=== PATIENT | female | born 1940 | race Caucasian/White ===

== ENCOUNTER 2016-12-22 11:07 | Outpatient (CLI) ==
[2016-12-22 11:29] VITALS: BP 110/80; TEMP 98.8
[2016-12-22] MEDS ORDERED: LIDOCAINE 1 % AMP 5 ML (SUTURES) IM STA (11:30)
[2016-12-22] MEDS ORDERED: ROCEPHIN IM STA (11:30)
== END 2016-12-22 11:08 | disposition home or self-care (01) ==
LOC: OUTPT 11:07
PROVIDERS: ATTEND Family Medicine
DX: N39.0 Urinary tract infection, site not specified (principal)
CPT/HCPCS: 96372

== ENCOUNTER 2016-12-23 08:30 | Outpatient (CLI) | payer OTHER ==
[2016-12-23 08:41] VITALS: BP 115/70; TEMP 98.3
[2016-12-23] MEDS ORDERED: ROCEPHIN IM STA (08:41)
[2016-12-23] MEDS ORDERED: LIDOCAINE 1 % AMP 5 ML (SUTURES) IM STA (08:41)
== END 2016-12-23 08:31 | disposition home or self-care (01) ==
LOC: OUTPT 08:30 → OPMED 08:31
PROVIDERS: ATTEND Family Medicine
DX: N39.0 Urinary tract infection, site not specified (principal)
CPT/HCPCS: 96372

== ENCOUNTER 2016-12-24 08:35 | Outpatient (CLI) | payer OTHER ==
[2016-12-24 08:46] VITALS: BP 132/75; TEMP 98.2
[2016-12-24] MEDS ORDERED: LIDOCAINE 1 % AMP 5 ML (SUTURES) IM STA (08:46)
[2016-12-24] MEDS ORDERED: ROCEPHIN IM STA (08:46)
== END 2016-12-24 08:36 | disposition home or self-care (01) ==
LOC: OUTPT 08:35
PROVIDERS: ATTEND Family Medicine
DX: N39.0 Urinary tract infection, site not specified (principal)
CPT/HCPCS: 96372

== ENCOUNTER 2016-12-25 08:30 | Outpatient (CLI) | payer OTHER ==
[2016-12-25] MEDS ORDERED: LIDOCAINE 1 % AMP 5 ML (SUTURES) IM STA (08:48)
[2016-12-25] MEDS ORDERED: ROCEPHIN IM STA (08:48)
[2016-12-25 08:52] VITALS: BP 138/70; TEMP 97.1
== END 2016-12-25 08:31 | disposition home or self-care (01) ==
LOC: OUTPT 08:30
PROVIDERS: ATTEND Family Medicine
DX: N39.0 Urinary tract infection, site not specified (principal)
CPT/HCPCS: 96372

== ENCOUNTER 2016-12-26 08:49 | Outpatient (CLI) | payer OTHER ==
[2016-12-26] MEDS ORDERED: ROCEPHIN ONE (09:23)
[2016-12-26] MEDS ORDERED: LIDOCAINE 1 % AMP 5 ML (SUTURES) ONE (09:23)
[2016-12-26] MEDS ORDERED: ROCEPHIN IM STA (09:26)
[2016-12-26] MEDS ORDERED: LIDOCAINE 1 % AMP 5 ML (SUTURES) IM STA (09:26)
[2016-12-26 09:28] VITALS: BP 119/76; TEMP 97.4
== END 2016-12-26 08:50 | disposition home or self-care (01) ==
LOC: LAB 08:49 → OPMED 08:50
PROVIDERS: ATTEND Family Medicine
DX: N39.0 Urinary tract infection, site not specified (principal)
CPT/HCPCS: 96372

== ENCOUNTER 2016-12-27 08:45 | Outpatient (CLI) ==
[2016-12-27 08:54] VITALS: BP 144/79; TEMP 98.2
[2016-12-27] MEDS ORDERED: ROCEPHIN IM STA (08:54)
[2016-12-27] MEDS ORDERED: LIDOCAINE 1 % AMP 5 ML (SUTURES) IM STA (08:54)
== END 2016-12-27 08:46 | disposition home or self-care (01) ==
LOC: OUTPT 08:45
PROVIDERS: ATTEND Family Medicine
DX: N39.0 Urinary tract infection, site not specified (principal)
CPT/HCPCS: 96372

== ENCOUNTER 2018-03-28 17:42 | Inpatient (IN) | payer OTHER ==
[2018-03-28] MEDS ORDERED: DICLOFENAC SODIUM 4 GM TP SCH (21:30)
[2018-03-28] MEDS ORDERED: AZULFIDINE ONE (21:45)
[2018-03-28] MEDS ORDERED: SULFASALAZINE 500 MG PO SCH (21:45)
[2018-03-28] MEDS ORDERED: [UNRECOGNIZED DRUG - OTHER] TP SCH (21:45)
[2018-03-28] MEDS ORDERED: NEURONTIN ONE (21:46)
[2018-03-28] MEDS: FOLIC ACID PO SCH (21:49)
[2018-03-28] MEDS: PAMELOR PO SCH (21:53)
[2018-03-28] MEDS: FAMVIR PO SCH (21:54)
[2018-03-28] MEDS ORDERED: HYDROXYCHLOROQUINE SULFATE 200 MG PO SCH (22:00)
[2018-03-28] MEDS ORDERED: NON-FORMULARY MEDICATION (Gabapentin [Neurontin] 600 MG) PO SCH (22:00)
[2018-03-28 22:39] VITALS: BMI 21.4
[2018-03-29] MEDS: FERROUS SULFATE PO SCH ×2 (08:17→17:20)
[2018-03-29] MEDS: FAMVIR PO SCH (08:17)
[2018-03-29] MEDS: FOLIC ACID PO SCH (08:17)
[2018-03-29] MEDS: AZULFIDINE PO SCH (08:17)
[2018-03-29] MEDS: VITAMIN D PO SCH (08:17)
[2018-03-29] MEDS: PLAQUENIL PO SCH (08:17)
[2018-03-29] MEDS: [UNRECOGNIZED DRUG - OTHER] TP SCH ×3 (08:18→17:21)
[2018-03-29] MEDS: NEURONTIN PO SCH ×3 (08:18→17:20)
[2018-03-29] MEDS: NON-FORMULARY MEDICATION (Cyanocobalamin (Vitamin B-12) [Vitamin B-12] 1,000 MCG) PO SCH (08:21)
[2018-03-29] MEDS: FLORASTOR PO SCH (08:21)
[2018-03-29] MEDS ORDERED: DICLOFENAC SODIUM 4 GM TP SCH (09:00)
[2018-03-29] MEDS ORDERED: NON-FORMULARY MEDICATION (Tamoxifen Citrate [Tamoxifen Citrate] 20 MG) PO SCH (09:00)
[2018-03-29] MEDS ORDERED: BULGARICUS PO SCH (09:00)
[2018-03-29] MEDS ORDERED: NON-FORMULARY MEDICATION (Potassium Chloride [Potassium Chloride] 10 MEQ) PO SCH (09:00)
[2018-03-29] MEDS ORDERED: ACIDOPHILUS PO SCH (09:00)
[2018-03-29] MEDS ORDERED: MICRO-K CAP PO SCH (09:00)
[2018-03-29] MEDS ORDERED: MICRO-K CAP PO STA (09:46)
--- NOTE | 2018-03-29 14:53 | RS.OTINEVL ---
Subjective - Patient information Date of Evaluation: 03/29/18 Date of Arrival on Unit: 03/28/18 Admitted From:: Facility Transfer (transferred from [facility]) Usual Living Arrangement: With Spouse Living Arrangement Comments: pt lives alone, spouse last tuesday. Home Environment: House, Stairs (few) Medical History: Arthritis (OA and RA), Cancer Medical History Comments:: Right hip nailing, Left SAUNDRA, Breast CA, B TKA, hysterectomy. LATEX ALLERGY?: No Surgical History: Knee Replacement, Hip Replacement, Hysterectomy Surgical History Comments:: L wrist sx, kyhpoplasty C1, C2, T9, Medications: see chart Subjective Information/ Patient Comments:: "You busted my bubble." - Level of function Prior to this admission, the patient could do the following:: Independent Selfcare, Independent ADL's, Independent Ambulation Abilities prior to this admission: Pt was the caregiver for her . Pt was walking independently, driving, independent with all ADLS. Current Equipment Used at Home: none will need rwx upon dc Pain Assessment - Pain Pain Score: 0 Pain Location Body Site: Hip Pain Aggravating Factors: ADL's, Changing Position, Standing Pain Alleviating Factors: Medication, Standing Interventions - Objective Patient Orientation: Person, Place Current Interventions: IV's Observation: Pt is having a difficult time keeping weight off of her R LE. Pt is weak in her BUE. Interventions - ROM Right Upper Extremity AROM: WFL's Left Upper Extremity AROM: WFL's - Strength Right Upper Extremity Strength: Mild Weakness Left Upper Extremity Strength: Mild Weakness - Sensation Right Upper Extremity Sensation: Intact/Normal Left Upper Extremity Sensation: Intact/Normal Balance - Sitting Balance Static Sitting Balance: Fair Dynamic Sitting Balance: Fair - Standing Balance Static Standing Balance: Poor Dynamic Standing Balance: Poor - Comments Balance Assessment Comments: Poor ADL Skills - Self Feeding Self Feeding: Independent - Grooming Grooming: Mod Assist - Dressing Dressing UE: Min Assist, Mod Assist Dressing LE: Max Assist - Toilet Management Toileting Management: Max Assist, 2 person assist - Comments Comments:: Pt having a difficult timey balancing on the LLE and pulling her briefs up. Functional Mobility - Bed Mobility Rolling R/L: Min Assist Scooting: Mod Assist Supine to Sit: Min Assist - Transfers Sit to Stand: Mod Assist, 2 person assist Stand to Sit: Mod Assist, 2 person assist Stand Pivot Transfers: Mod Assist, 2 person assist - Ambulation Assistive Device Used: Rolling Walker Assistance needed with Ambulation: Mod Assist, 2 person assist - Safety Awareness Safety Awareness: Fair AMMY INDEX SCORE: 34 Additional Treatment Performed - Additional units charged ADL: 20 - Time with patient Length of Evaluation: 20 Total treatment time: 40 Activities Would you be interested in leaving your room for activities?: Yes Would you enjoy group activities?: Yes Patient Interests:: Watching Television, Visiting/Socializing Patient Education Patient Education: Education of diagnosis, Body/Joint mechanics, Home Exercise Program, Education of Plan of Care Teaching Recipient: Patient Teaching Methods: Teach Back Method Used, Discussion Assessment Problem List:: Decreased level of function, Requires training/education, Decreased safety/Risk of falls, Weakness Rehab Potential: Good Further Therapy Indicated?: Yes Candidate for Swing Bed for Therapy Services?: yes Evaluation Complexity: HISTORY: Medium, EXAM OF BODY SYSTEMS: Medium, CLINICAL DECISION MAKING: Medium Short Term Goals - Goals GOAL 1: Pt to increase BUE strength from 3/5 to 4/5. Goal to be met by: 04/06/18 GOAL 2: Pt to increase LE dressing to Minimal assistance. Goal to be met by: 04/06/18 GOAL 3: Pt to increase independence of Toilet tranfers with RW to Minimal A Goal to be met by: 04/06/18 [facility] Goals GOAL 1: Pt to increase BUE strength from 3/5 to 4+/5. Goal to be met by: 04/19/18 GOAL 2: Pt to increase LE dressing to CGA. Goal to be met by: 04/19/18 GOAL 3: Pt to increase independence of Toilet tranfers with RW to CGA. Goal to be met by: 04/19/18 Plan Plan of Care: Therapeutic EX, Neuromuscular Re-Educ, Therapeutic Activity, Self- Care/Home Management Frequency of Treatment: 1-2 X day, as tolerated Duration of Treatment: 3 Weeks Anticipated Discharge Destination: Home Treatment Diagnosis (ICD 10 Codes): M62.81 Muscle Weakness, Z74.0 Reduced mobility, Z74.1 Need for assistance with personal care. Has the Physician been added for Co-signature?: Yes
--- NOTE | 2018-03-29 15:02 | RS.PTINEVL ---
Subjective - Patient information Date of Evaluation: 03/29/18 Date of Arrival on Unit: 03/28/18 Admitted From:: Facility Transfer (transferred from [facility]) Diagnosis: R hip fx, s/p r hip nailing, gait abnormality Usual Living Arrangement: With Spouse Living Arrangement Comments: pt lives alone, spouse last tuesday. Home Environment: House, Stairs (few) Medical History: Arthritis (OA and RA), Cancer LATEX ALLERGY?: No Surgical History: Knee Replacement, Hip Replacement, Hysterectomy Surgical History Comments:: L wrist sx, kyhpoplasty C1, C2, T9, Medications: see chart Subjective Information/ Patient Comments:: pt states that she is overwhelmed making arrangements for husbands . States she may have to hire someone to stay with her when she gets home. - Level of function Abilities prior to this admission: prior to fall, pt amb independently without AD and was independent with all ADL' s Current Level of Function: Dependent Current Equipment Used at Home: none will need rwx upon dc Pain Assessement - Location R hip Description: Aching Intensity: 4 Pain Behavior: Rubbing Site, Facial Grimacing Pain Aggravating Factors: Exercise/Activity, Standing, Sitting, Walking, Stair Climbing Pain Alleviating Factors: Medication Interventions - Objective Patient Orientation: Person, Place, Time, Situation Current Interventions: IV's Observation: dressing to R hip intact, however with serosanguinous exudate noted soaked through dressing. Range of Motion - ROM Right Upper Extremity AROM: WFL's Left Upper Extremity AROM: WFL's Right Lower Extremity AROM: Slight limitation (R hip limited due to fracture) Left Lower Extremity AROM: WFL's Muscle Strength - Muscle Strength Right Upper Extremity Strength: Mild Weakness (grossly 4/5) Left Upper Extremity Strength: Mild Weakness (grossly 4/5) Right Lower Extremity Strength: Mild Weakness (hip flex 3-/5, knee flex/ext 3/5 , ankle DF/PF 4-/5) Left Lower Extremity Strength: Mild Weakness (hip flex 4-/5, knee flex/ext 4/5, ankle Df/PF 4/5) Sensation - Sensation Right Upper Extremity Sensation: Intact/Normal Left Upper Extremity Sensation: Intact/Normal Right Lower Extremity Sensation: Intact/Normal Left Lower Extremity Sensation: Intact/Normal Palpation Palpation Findings: Tenderness (R hip) Balance - Sitting Balance and Reactions Static Sitting Balance: Fair Dynamic Sitting Balance: Poor Sitting Equilibrium Reactions: Delayed Left, Delayed Right Sitting Protective Reactions: Delayed Left, Delayed Right - Standing Balance and Reactions Static Standing Balance: Poor Dynamic Standing Balance: Poor Standing Equilibrium Reactions: Delayed Left, Delayed Right Standing Protective Reactions: Delayed Left, Delayed Right - Comments Balance Assessment Comments: pt with difficulty maintaining weight bearing with challenges to balance. Functional Mobility - Bed Mobility Rolling R/L: Min Assist Scooting: Min Assist, 2 person assist Supine to Sit: Min Assist, 1 person assist - Transfers Sit to Stand: Min Assist, 2 person assist Stand to Sit: Min Assist, 2 person assist - Safety Awareness Safety Awareness: Fair AMMY INDEX SCORE: 34 Ambulation - Ambulation Weight Bearing Status: TDWB/TTWB (RLE) Assistive Device Used: Rolling Walker Orthotic/Prosthetic Device: No Distance: 5ft Assistance needed with Ambulation: Min Assist, 2 person assist Gait Deviations: Forward posture, Short stride Ambulation Comments: pt with difficulty maintaining TWB RLE. Factors Affecting Ambulation: WB Status, Decreased Balance, Pain, Weakness, Decreased Safety, Limited Endurance Treatment time - Time with patient Length of Evaluation: 19 Total treatment time: 31 Patient Education - Education Patient Education: Activity Modification, Education of Plan of Care Teaching Recipient: Patient Teaching Methods: Discussion (discussion regarding POC) Assessment - Assessment Problem List:: Decreased level of function, Requires training/education, Decreased safety/Risk of falls, Weakness, Pain limits previous level of function Rehab Potential: Good Further Therapy Indicated?: Yes Candidate for Swing Bed for Therapy Services?: pt is swing bed patient Evaluation Complexity: HISTORY: Medium (hip fx, RA, OA, ), EXAM OF BODY SYSTEMS : Medium (gait, balance, ROM,, strength,pain), CLINICAL PRESENTATION: Medium ( evolving), CLINICAL DECISION MAKING: Medium Short Term Goals GOAL #1: pt rolling and positioning in bed with bed rails independently Goal to be met by: 04/05/18 GOAL #2: pt transfer sup to/from sit to/from stand min x1 Goal to be met by: 04/05/18 GOAL #3: pt amb with rwx TWB RLE 25ft with min x 1 Goal to be met by: 04/05/18 GOAL #4: Improve BLE strength to 4/5 Goal to be met by: 04/05/18 [facility] Goals GOAL #1: pt transfer sup to/from sit to/from stand SBA Goal to be met by: 04/12/18 GOAL #2: pt amb with rwx 50ft with TWB RLE with CGA to SBA. Goal to be met by: 04/12/18 GOAL #3: pt independent with HEP Goal to be met by: 04/12/18 Plan Plan of Care: Therapeutic EX, Therapeutic Activity Other:: gait training Frequency of Treatment: 1-2 X day, as tolerated Duration of Treatment: 2 weeks Anticipated Discharge Destination: Home Treatment Diagnosis (ICD 10 Codes): M 62.81 general weakness. R26.81 difficulty walking. hip pain Has the Physician been added for Co-signature?: Yes
[2018-03-29] MEDS: XARELTO PO SCH (17:22)
[2018-03-30] MEDS: AZULFIDINE PO SCH ×3 (00:16→21:02)
[2018-03-30] MEDS: NEURONTIN PO SCH ×5 (00:16→21:03)
[2018-03-30] MEDS: FOLIC ACID PO SCH ×3 (00:16→21:02)
[2018-03-30] MEDS: PLAQUENIL PO SCH ×3 (00:17→21:02)
[2018-03-30] MEDS: [UNRECOGNIZED DRUG - OTHER] TP SCH ×5 (00:17→21:05)
[2018-03-30] MEDS: PAMELOR PO SCH ×2 (00:17→21:03)
[2018-03-30] MEDS: NON-FORMULARY MEDICATION (Cyanocobalamin (Vitamin B-12) [Vitamin B-12] 1,000 MCG) PO SCH (08:07)
[2018-03-30] MEDS: FERROUS SULFATE PO SCH ×2 (08:10→16:36)
[2018-03-30] MEDS: K-DUR PO SCH (08:10)
[2018-03-30] MEDS: VITAMIN D PO SCH (08:10)
[2018-03-30] MEDS: FLORASTOR PO SCH (08:11)
[2018-03-30] MEDS: NON-FORMULARY MEDICATION (Tamoxifen Citrate [Tamoxifen Citrate] 20 MG) PO SCH (08:15)
[2018-03-30] MEDS ORDERED: MICRO-K CAP PO SCH (09:00)
[2018-03-30] MEDS: NORCO 5-325 PO PRN (11:57)
[2018-03-30] MEDS: XARELTO PO SCH (16:38)
[2018-03-31] MEDS: NON-FORMULARY MEDICATION (Tamoxifen Citrate [Tamoxifen Citrate] 20 MG) PO SCH (08:21)
[2018-03-31] MEDS: PLAQUENIL PO SCH ×2 (08:21→20:39)
[2018-03-31] MEDS: AZULFIDINE PO SCH ×2 (08:22→20:39)
[2018-03-31] MEDS: FERROUS SULFATE PO SCH ×2 (08:22→16:39)
[2018-03-31] MEDS: K-DUR PO SCH (08:22)
[2018-03-31] MEDS: NEURONTIN PO SCH ×4 (08:22→20:39)
[2018-03-31] MEDS: FOLIC ACID PO SCH ×2 (08:22→20:39)
[2018-03-31] MEDS: FLORASTOR PO SCH (08:22)
[2018-03-31] MEDS: VITAMIN D PO SCH (08:22)
[2018-03-31] MEDS: NON-FORMULARY MEDICATION (Cyanocobalamin (Vitamin B-12) [Vitamin B-12] 1,000 MCG) PO SCH (08:23)
[2018-03-31] MEDS: [UNRECOGNIZED DRUG - OTHER] TP SCH ×4 (08:23→20:40)
[2018-03-31] MEDS: XARELTO PO SCH (16:24)
[2018-03-31] MEDS: PAMELOR PO SCH (20:39)
[2018-04-01] MEDS: NON-FORMULARY MEDICATION (Tamoxifen Citrate [Tamoxifen Citrate] 20 MG) PO SCH (09:02)
[2018-04-01] MEDS: AZULFIDINE PO SCH ×2 (09:03→21:36)
[2018-04-01] MEDS: VITAMIN D PO SCH (09:03)
[2018-04-01] MEDS: FLORASTOR PO SCH (09:03)
[2018-04-01] MEDS: FOLIC ACID PO SCH ×2 (09:03→21:37)
[2018-04-01] MEDS: K-DUR PO SCH (09:03)
[2018-04-01] MEDS: PLAQUENIL PO SCH ×2 (09:03→21:37)
[2018-04-01] MEDS: NEURONTIN PO SCH ×4 (09:04→21:37)
[2018-04-01] MEDS: FERROUS SULFATE PO SCH ×2 (09:04→17:31)
[2018-04-01] MEDS: NON-FORMULARY MEDICATION (Cyanocobalamin (Vitamin B-12) [Vitamin B-12] 1,000 MCG) PO SCH (09:04)
[2018-04-01] MEDS: [UNRECOGNIZED DRUG - OTHER] TP SCH ×3 (12:45→23:26)
[2018-04-01] MEDS: XARELTO PO SCH (17:32)
[2018-04-01] MEDS: PAMELOR PO SCH (21:37)
[2018-04-02] MEDS: [UNRECOGNIZED DRUG - OTHER] TP SCH ×3 (08:02→17:04)
[2018-04-02] MEDS: NON-FORMULARY MEDICATION (Tamoxifen Citrate [Tamoxifen Citrate] 20 MG) PO SCH (08:39)
[2018-04-02] MEDS: NEURONTIN PO SCH ×4 (08:40→21:18)
[2018-04-02] MEDS: FERROUS SULFATE PO SCH ×2 (08:40→17:04)
[2018-04-02] MEDS: K-DUR PO SCH (08:40)
[2018-04-02] MEDS: PLAQUENIL PO SCH ×2 (08:40→21:18)
[2018-04-02] MEDS: AZULFIDINE PO SCH ×2 (08:40→21:17)
[2018-04-02] MEDS: FOLIC ACID PO SCH ×2 (08:41→21:17)
[2018-04-02] MEDS: FLORASTOR PO SCH (08:41)
[2018-04-02] MEDS: VITAMIN D PO SCH (08:41)
[2018-04-02] MEDS: NON-FORMULARY MEDICATION (Cyanocobalamin (Vitamin B-12) [Vitamin B-12] 1,000 MCG) PO SCH (14:44)
[2018-04-02] MEDS: XARELTO PO SCH (17:05)
[2018-04-02] MEDS: PAMELOR PO SCH (21:18)
[2018-04-03] MEDS: [UNRECOGNIZED DRUG - OTHER] TP SCH ×4 (01:07→17:05)
[2018-04-03] MEDS: PLAQUENIL PO SCH ×2 (08:23→21:00)
[2018-04-03] MEDS: NON-FORMULARY MEDICATION (Tamoxifen Citrate [Tamoxifen Citrate] 20 MG) PO SCH (08:23)
[2018-04-03] MEDS: AZULFIDINE PO SCH ×2 (08:23→21:00)
[2018-04-03] MEDS: FERROUS SULFATE PO SCH ×2 (08:23→17:05)
[2018-04-03] MEDS: FOLIC ACID PO SCH ×2 (08:23→21:00)
[2018-04-03] MEDS: NON-FORMULARY MEDICATION (Cyanocobalamin (Vitamin B-12) [Vitamin B-12] 1,000 MCG) PO SCH (08:24)
[2018-04-03] MEDS: NEURONTIN PO SCH ×4 (08:24→21:00)
[2018-04-03] MEDS: FLORASTOR PO SCH (08:24)
[2018-04-03] MEDS: K-DUR PO SCH (08:24)
[2018-04-03] MEDS: VITAMIN D PO SCH (08:24)
[2018-04-03] MEDS: RHEUMATREX PO SCH (08:25)
[2018-04-03] MEDS: NORCO 5-325 PO PRN (12:59)
[2018-04-03] MEDS: XARELTO PO SCH (17:06)
[2018-04-03] MEDS: PAMELOR PO SCH (21:00)
[2018-04-04] MEDS: [UNRECOGNIZED DRUG - OTHER] TP SCH ×4 (01:41→17:51)
[2018-04-04] MEDS: NORCO 5-325 PO PRN ×2 (01:41→13:17)
[2018-04-04] MEDS: FERROUS SULFATE PO SCH ×2 (08:18→17:51)
[2018-04-04] MEDS: PLAQUENIL PO SCH ×2 (08:19→20:17)
[2018-04-04] MEDS: AZULFIDINE PO SCH ×2 (08:19→20:17)
[2018-04-04] MEDS: K-DUR PO SCH (08:19)
[2018-04-04] MEDS: FLORASTOR PO SCH (08:20)
[2018-04-04] MEDS: NEURONTIN PO SCH ×4 (08:20→20:17)
[2018-04-04] MEDS: FOLIC ACID PO SCH ×2 (08:20→20:17)
[2018-04-04] MEDS: VITAMIN D PO SCH (08:20)
[2018-04-04] MEDS: NON-FORMULARY MEDICATION (Tamoxifen Citrate [Tamoxifen Citrate] 20 MG) PO SCH (08:21)
[2018-04-04] MEDS: NON-FORMULARY MEDICATION (Cyanocobalamin (Vitamin B-12) [Vitamin B-12] 1,000 MCG) PO SCH (08:22)
[2018-04-04] MEDS ORDERED: RHEUMATREX PO SCH (09:00)
[2018-04-04] MEDS: XARELTO PO SCH (17:51)
[2018-04-04] MEDS: PAMELOR PO SCH (20:17)
[2018-04-05] MEDS: [UNRECOGNIZED DRUG - OTHER] TP SCH ×4 (00:43→17:09)
[2018-04-05] MEDS: AZULFIDINE PO SCH ×2 (08:53→20:10)
[2018-04-05] MEDS: K-DUR PO SCH (08:54)
[2018-04-05] MEDS: FLORASTOR PO SCH (08:54)
[2018-04-05] MEDS: VITAMIN D PO SCH (08:54)
[2018-04-05] MEDS: FOLIC ACID PO SCH ×2 (08:55→20:10)
[2018-04-05] MEDS: PLAQUENIL PO SCH ×2 (08:55→20:09)
[2018-04-05] MEDS: NEURONTIN PO SCH ×4 (08:55→20:10)
[2018-04-05] MEDS: NON-FORMULARY MEDICATION (Tamoxifen Citrate [Tamoxifen Citrate] 20 MG) PO SCH (08:55)
[2018-04-05] MEDS: FERROUS SULFATE PO SCH ×2 (08:55→17:05)
[2018-04-05] MEDS: NON-FORMULARY MEDICATION (Cyanocobalamin (Vitamin B-12) [Vitamin B-12] 1,000 MCG) PO SCH (08:56)
[2018-04-05] MEDS: NORCO 5-325 PO PRN ×2 (12:41→17:47)
[2018-04-05] MEDS: XARELTO PO SCH (17:05)
[2018-04-05] MEDS: PAMELOR PO SCH (20:09)
[2018-04-06] MEDS: [UNRECOGNIZED DRUG - OTHER] TP SCH ×5 (01:11→23:12)
[2018-04-06] MEDS: PLAQUENIL PO SCH ×2 (08:51→20:44)
[2018-04-06] MEDS: NEURONTIN PO SCH ×4 (08:51→20:45)
[2018-04-06] MEDS: NON-FORMULARY MEDICATION (Tamoxifen Citrate [Tamoxifen Citrate] 20 MG) PO SCH (08:51)
[2018-04-06] MEDS: VITAMIN D PO SCH (08:51)
[2018-04-06] MEDS: FOLIC ACID PO SCH ×2 (08:52→20:45)
[2018-04-06] MEDS: FLORASTOR PO SCH (08:52)
[2018-04-06] MEDS: FERROUS SULFATE PO SCH ×2 (08:52→17:18)
[2018-04-06] MEDS: AZULFIDINE PO SCH ×2 (08:52→20:44)
[2018-04-06] MEDS: K-DUR PO SCH (08:52)
[2018-04-06] MEDS: NON-FORMULARY MEDICATION (Cyanocobalamin (Vitamin B-12) [Vitamin B-12] 1,000 MCG) PO SCH (08:52)
[2018-04-06] MEDS: NORCO 5-325 PO PRN (14:05)
[2018-04-06] MEDS: XARELTO PO SCH (17:18)
[2018-04-06] MEDS: PAMELOR PO SCH (20:45)
[2018-04-07] MEDS: [UNRECOGNIZED DRUG - OTHER] TP SCH ×4 (05:43→18:00)
[2018-04-07] MEDS: FERROUS SULFATE PO SCH ×2 (09:43→17:00)
[2018-04-07] MEDS: FLORASTOR PO SCH (09:44)
[2018-04-07] MEDS: NEURONTIN PO SCH ×4 (09:44→21:04)
[2018-04-07] MEDS: FOLIC ACID PO SCH ×2 (09:44→21:04)
[2018-04-07] MEDS: K-DUR PO SCH (09:44)
[2018-04-07] MEDS: PLAQUENIL PO SCH ×2 (09:44→21:03)
[2018-04-07] MEDS: VITAMIN D PO SCH (09:44)
[2018-04-07] MEDS: NON-FORMULARY MEDICATION (Tamoxifen Citrate [Tamoxifen Citrate] 20 MG) PO SCH (09:45)
[2018-04-07] MEDS: AZULFIDINE PO SCH ×2 (09:45→21:03)
[2018-04-07] MEDS: NON-FORMULARY MEDICATION (Cyanocobalamin (Vitamin B-12) [Vitamin B-12] 1,000 MCG) PO SCH (09:45)
[2018-04-07] MEDS: NORCO 5-325 PO PRN (14:58)
[2018-04-07] MEDS ORDERED: NEURONTIN PO STA (15:21)
[2018-04-07] MEDS ORDERED: XARELTO PO STA (15:21)
[2018-04-07] MEDS ORDERED: FERROUS SULFATE PO STA (15:23)
[2018-04-07] MEDS: XARELTO PO SCH (17:00)
[2018-04-07] MEDS: PAMELOR PO SCH (21:03)
[2018-04-08] MEDS: NORCO 5-325 PO PRN ×2 (06:47→16:47)
[2018-04-08] MEDS: [UNRECOGNIZED DRUG - OTHER] TP SCH ×3 (06:47→17:24)
[2018-04-08] MEDS: FLORASTOR PO SCH (08:04)
[2018-04-08] MEDS: AZULFIDINE PO SCH ×2 (08:04→20:16)
[2018-04-08] MEDS: FERROUS SULFATE PO SCH ×2 (08:04→16:47)
[2018-04-08] MEDS: K-DUR PO SCH (08:05)
[2018-04-08] MEDS: NEURONTIN PO SCH ×4 (08:05→20:16)
[2018-04-08] MEDS: VITAMIN D PO SCH (08:05)
[2018-04-08] MEDS: FOLIC ACID PO SCH ×2 (08:05→20:16)
[2018-04-08] MEDS: PLAQUENIL PO SCH ×2 (08:05→20:16)
[2018-04-08] MEDS: NON-FORMULARY MEDICATION (Cyanocobalamin (Vitamin B-12) [Vitamin B-12] 1,000 MCG) PO SCH (08:05)
[2018-04-08] MEDS: NON-FORMULARY MEDICATION (Tamoxifen Citrate [Tamoxifen Citrate] 20 MG) PO SCH (08:06)
[2018-04-08] MEDS: XARELTO PO SCH (16:50)
[2018-04-08] MEDS: PAMELOR PO SCH (20:16)
[2018-04-09] MEDS: [UNRECOGNIZED DRUG - OTHER] TP SCH ×5 (00:30→23:06)
[2018-04-09] MEDS: FERROUS SULFATE PO SCH ×2 (09:08→17:08)
[2018-04-09] MEDS: NON-FORMULARY MEDICATION (Tamoxifen Citrate [Tamoxifen Citrate] 20 MG) PO SCH (09:08)
[2018-04-09] MEDS: FOLIC ACID PO SCH ×2 (09:09→20:20)
[2018-04-09] MEDS: AZULFIDINE PO SCH ×2 (09:09→20:20)
[2018-04-09] MEDS: PLAQUENIL PO SCH ×2 (09:09→20:19)
[2018-04-09] MEDS: FLORASTOR PO SCH (09:09)
[2018-04-09] MEDS: VITAMIN D PO SCH (09:09)
[2018-04-09] MEDS: K-DUR PO SCH (09:09)
[2018-04-09] MEDS: NEURONTIN PO SCH ×4 (09:09→20:19)
[2018-04-09] MEDS: NON-FORMULARY MEDICATION (Cyanocobalamin (Vitamin B-12) [Vitamin B-12] 1,000 MCG) PO SCH (09:10)
[2018-04-09] MEDS: XARELTO PO SCH (17:09)
[2018-04-09] MEDS: PAMELOR PO SCH (20:19)
[2018-04-10] MEDS: [UNRECOGNIZED DRUG - OTHER] TP SCH ×2 (05:37→12:27)
[2018-04-10 05:53] VITALS: BP 110/72; TEMP 97.9
[2018-04-10] MEDS: PLAQUENIL PO SCH (09:28)
[2018-04-10] MEDS: RHEUMATREX PO SCH (09:28)
[2018-04-10] MEDS: FLORASTOR PO SCH (09:28)
[2018-04-10] MEDS: NON-FORMULARY MEDICATION (Tamoxifen Citrate [Tamoxifen Citrate] 20 MG) PO SCH (09:28)
[2018-04-10] MEDS: FOLIC ACID PO SCH (09:29)
[2018-04-10] MEDS: NEURONTIN PO SCH ×2 (09:29→12:27)
[2018-04-10] MEDS: VITAMIN D PO SCH (09:29)
[2018-04-10] MEDS: K-DUR PO SCH (09:29)
[2018-04-10] MEDS: FERROUS SULFATE PO SCH (09:29)
[2018-04-10] MEDS: AZULFIDINE PO SCH (09:29)
[2018-04-10] MEDS: NON-FORMULARY MEDICATION (Cyanocobalamin (Vitamin B-12) [Vitamin B-12] 1,000 MCG) PO SCH (09:30)
--- NOTE | 2018-04-17 11:07 | HP ---
CHIEF COMPLAINT: " I broke my hip." DISCUSSION: This is a 78 year old lady with a history of osteoporosis, remote history of breast cancer who was visiting her in the intensive care unit at [facility] where he was terminally ill. She fell over a chair striking her right hip and sustained a hip fracture. The patient has operative repair and then transferred from [facility] in [place] to the swing bed at [facility] for further rehabilitation and treatment. PAST MEDICAL HISTORY: MEDICATIONS: Ferrous Sulfate 324mg two times daily with meals Floranex 1 capsule Folic acid 1mg PO two times daily Gabapentin 600mg PO four times a day Hydroxychloroquine 200mg two times daily Methotrexate 2.5mg weekly 6 pills on Tuesday Potassium Chloride 10meq oral daily Sulfasalazine 1000mg two times daily Tamoxifen 20mg PO daily Vitamin B 12 1000mcg daily Vitamin D 2000mg oral daily Diclofenac 4gram topical four times daily Famciclovir 500mg three times daily Nonformulary one application, Topical, four times daily Nortriptyline 10mg nightly ALLERGIES: Ciprofloxacin Nitrofurantoin Penicillins PAST MEDICAL/SURGICAL HISTORY: Hip repair Osteoporosis Chronic anemia Rheumatoid arthritis History of post hepatic neuralgia Colitis SOCIAL HISTORY: Recent . No history of alcohol or tobacco use noted. FAMILY HISTORY: Reviewed and thought not to be pertinent to discussion. REVIEW OF SYSTEMS: No headaches, visual changes, tinnitus, hemoptysis, blood in the stool, urinary symptoms or seizures. PHYSICAL EXAMINATION: V/S: Temperature 98, pulse 90, respiratory rate 18, blood pressure 145/74 HEENT: Pupils are round. NECK: Supple. CHEST: Clear. CARDIOVASCULAR: Regular rate and rhythm. ABDOMEN: Soft, nontender. EXTREMITIES: Distal extremities without cyanosis or edema. ASSESSMENT: 1. Hip fracture 2. Rheumatoid arthritis 3. Osteoporosis 4. Colitis 5. Chronic anemia PLAN: 1. Will have occupational therapy and physical therapy 2. See the patient and continue with treatments 3. Anticipate snf discharge from this facility Please see orders. MTDD
== END 2018-04-10 13:03 | DRG 561 ==
LOC: MEDSURG B 17:42
PROVIDERS: ADMIT Family Medicine; ATTEND Family Medicine
DX: S72.001D Fracture of unspecified part of neck of right femur, subsequent encounter for closed fracture with routine healing (principal); M06.9 Rheumatoid arthritis, unspecified; M81.0 Age-related osteoporosis without current pathological fracture; K52.9 Noninfective gastroenteritis and colitis, unspecified; W19.XXXD Unspecified fall, subsequent encounter
CPT/HCPCS: 36415; 80048; 80053; 85025; 87070; 87081; 97802

== ENCOUNTER 2018-06-05 12:53 | Outpatient (CLI) | payer OTHER | END 2018-06-05 12:54 | disposition home or self-care (01) | LOC: CAR 12:53 | PROVIDERS: ATTEND Family Medicine | DX: S72.001A Fracture of unspecified part of neck of right femur, initial encounter for closed fracture (principal); R00.2 Palpitations | CPT/HCPCS: 93227 ==

== ENCOUNTER 2018-08-06 12:34 | Outpatient (CLI) | END 2018-08-06 12:55 | disposition short-term general hospital (02) | LOC: AMBL 12:34 | PROVIDERS: ATTEND Emergency Medicine | DX: S09.90XA Unspecified injury of head, initial encounter (principal); R53.1 Weakness; R53.83 Other fatigue; W18.2XXA Fall in (into) shower or empty bathtub, initial encounter; R00.0 Tachycardia, unspecified ==